=== PATIENT | male | born 1975 | race Caucasian/White ===

== ENCOUNTER 2016-09-28 16:50 | Emergency (ER) | payer BC ==
[2016-09-28 17:12] LABS: APPEARANCE,URINE Slightly Cloudy; BILIRUBIN,URINE NEGATIVE (NEGATIVE); COLOR,URINE Light yellow; GLUCOSE, URINE (UA) NEGATIVE (NEGATIVE); KETONES,URINE NEGATIVE (NEGATIVE); LEUKOCYTE ESTERASE ,URINE NEGATIVE (NEGATIVE); NITRATE,URINE NEGATIVE (NEGATIVE); OCCULT BLOOD,URINE NEGATIVE (NEG-TRACE); UROBILINOGEN,URINE 0.2 (0.2-1.0 EU)
[2016-09-28 17:27] LABS: RBC,URINE NEG (0-3AV/HPF); WBC,URINE 0-2 (0-5AV/HPF)
[2016-09-28 17:31] VITALS: TEMP 99.3
[2016-09-28 18:02] LABS: CALCIUM 8.8 mg/dl (8.5-10.1); POTASSIUM 3.7 mMol/L (3.5-5.1)
[2016-09-28 18:44] VITALS: BP 139/81; PULSE 52; RESP 14; O2SAT 98
== END 2016-09-28 18:35 | disposition home or self-care (01) ==
LOC: ED 16:50
DX: I10 Essential (primary) hypertension (principal); R10.9 Unspecified abdominal pain; R30.0 Dysuria
CPT/HCPCS: 36415; 80048; 81001; 99283

== ENCOUNTER 2016-12-13 23:09 | Emergency (ER) | payer BC ==
[2016-12-13 23:24] VITALS: TEMP 98.7
[2016-12-13] MEDS ORDERED: SODIUM CHLORIDE 0.9% 1000ML 1,000 ML IV ONE (23:38)
[2016-12-13 23:46] LABS: BASOPHILS % (AUTO) 1 % (0-3); EOSINOPHILS % (AUTO) 3 % (0-9); HEMATOCRIT 38 % (39-53); MEAN CORPUSCULAR HGB CONC 36.6 gm/dl (32.0-36.0); MONOCYTES % (AUTO) 7.4 % (0-12); NEUTROPHILS % (AUTO) 58.3 % (37-80)
[2016-12-13 23:52] LABS: APPEARANCE,URINE Clear; BILIRUBIN,URINE NEGATIVE (NEGATIVE); COLOR,URINE Yellow; GLUCOSE, URINE (UA) NEGATIVE (NEGATIVE); KETONES,URINE NEGATIVE (NEGATIVE); LEUKOCYTE ESTERASE ,URINE NEGATIVE (NEGATIVE); NITRATE,URINE NEGATIVE (NEGATIVE); OCCULT BLOOD,URINE NEGATIVE (NEG-TRACE); PH,URINE 5.5; UROBILINOGEN,URINE 0.2 (0.2-1.0 EU)
[2016-12-14 00:02] LABS: AMPHETAMINES NEGATIVE (NEGATIVE); METHADONE NEGATIVE (NEGATIVE); OPIATES(OP13) NEGATIVE (NEGATIVE); OXYCODONE(OXY) NEGATIVE (NEGATIVE); PROPOXYPHENE(PPX) NEGATIVE (NEGATIVE); RBC,URINE 0-2 (0-3AV/HPF); TRICYCLIC ANTIDEPRESSANTS NEGATIVE (NEGATIVE)
[2016-12-14 00:03] LABS: MEAN CORPUSCULAR VOLUME 80 fL (80-100)
[2016-12-14 00:07] LABS: ALBUMIN 3.6 gm/dl (3.4-5.0); ALT 16 IU/L (14-63); CALCIUM 8.4 mg/dl (8.5-10.1); GLOM FILT RATE 83 mL/min (>60); POTASSIUM 3.5 mMol/L (3.5-5.1); SODIUM 142 mMol/L (136-145); THYROID STIMULATING HORMONE 1.458 uIU/ml (0.358-3.740)
[2016-12-14 01:17] VITALS: O2SAT 98
[2016-12-14 02:09] VITALS: BP 129/65; PULSE 58; RESP 18
== END 2016-12-14 02:27 | disposition home or self-care (01) ==
LOC: ED 23:09
DX: R07.9 Chest pain, unspecified (principal); R55 Syncope and collapse; R42 Dizziness and giddiness
CPT/HCPCS: 36415; 71020; 80053; 80305; 81001; 82550; 84443; 84484; 85025; 85378; 93005; 96365; 99284; 99285